=== PATIENT | male | born 1940 | race Hispanic/Latino ===

== ENCOUNTER 2019-10-18 12:43 | Emergency (ER) | payer MEDICARE ==
[2019-10-18 13:45] VITALS: BP 114/63
--- NOTE | 2019-10-18 14:56 | Emergency Department Report ---
ED General Adult HPI - General Chief complaint: Dental/Oral Stated complaint: VOMIT BLOOD Time Seen by Provider: 10/18/19 14:10 Source: patient Mode of arrival: Ambulatory Limitations: No Limitations - History of Present Illness Initial comments: She presents to the emergency department with a chief complaint of bleeding of his tongue. Patient takes no anticoagulants xarelto and states the bleeding started approximately 30 minutes after eating lunch. Patient is not sure if he scraped this time with a fork or not. Bleeding has subsided upon my examination and history. The patient has no other complaints -: Sudden Severity scale (0 -10): 0 Consistency: now resolved Improves with: none Worsens with: none Associated Symptoms: denies other symptoms Treatments Prior to Arrival: none - Related Data Allergies Allergy/AdvReac Type Severity Reaction Status Date / Time No Known Allergies Allergy Unverified 10/18/19 12:48 ED Review of Systems ROS: Stated complaint: VOMIT BLOOD Other details as noted in HPI Comment: All other systems reviewed and negative Constitutional: denies: chills, fever Eyes: denies: eye pain, eye discharge, vision change ENT: denies: ear pain, throat pain Respiratory: denies: cough, shortness of breath, wheezing Cardiovascular: denies: chest pain, palpitations Endocrine: no symptoms reported Gastrointestinal: denies: abdominal pain, nausea, diarrhea Genitourinary: denies: urgency, dysuria Musculoskeletal: denies: back pain, joint swelling, arthralgia Skin: denies: rash, lesions Neurological: denies: headache, weakness, paresthesias Psychiatric: denies: anxiety, depression Hematological/Lymphatic: denies: easy bleeding, easy bruising ED Past Medical Hx - Past Medical History Previous Medical History?: Yes Hx Diabetes: Yes - Surgical History Past Surgical History?: No - Social History Smoking Status: Never Smoker Substance Use Type: None ED Physical Exam - General Limitations: No Limitations General appearance: alert, in no apparent distress - Head Head exam: Present: atraumatic, normocephalic - Eye Eye exam: Present: normal appearance - ENT ENT exam: Present: mucous membranes moist, other (this coagulation of bleeding of the anterior aspect of the tongue.There appears to be an abrasion of the tongue along its anterior aspect at the site of the previous bleeding ) - Neck Neck exam: Present: normal inspection - Respiratory Respiratory exam: Present: normal lung sounds bilaterally. Absent: respiratory distress - Cardiovascular Cardiovascular Exam: Present: regular rate, normal rhythm. Absent: systolic murmur, diastolic murmur, rubs, gallop - Rectal Rectal exam: Present: deferred - Extremities Exam Extremities exam: Present: normal inspection - Back Exam Back exam: Present: normal inspection - Neurological Exam Neurological exam: Present: alert, oriented X3, CN II-XII intact. Absent: motor sensory deficit - Psychiatric Psychiatric exam: Present: normal affect, normal mood - Skin Skin exam: Present: warm, dry, intact, normal color. Absent: rash ED Course Vital Signs 10/18/19 13:43 Temperature 97.5 F L Pulse Rate 82 Respiratory 18 Rate Blood Pressure 114/63 O2 Sat by Pulse 100 Oximetry ED Medical Decision Making - Medical Decision Making Bleeding has subsided Discussed plan of care with patient and his Critical care attestation.: If time is entered above; I have spent that time in minutes in the direct care of this critically ill patient, excluding procedure time. ED Disposition Clinical Impression: Bleeding Disposition: DC-01 TO HOME OR SELFCARE Is pt being admited?: No Does the pt Need Aspirin: No Condition: Stable Additional Instructions: return if worse Referrals: SHANE STAPLETON MD [Staff Physician] - 3-5 Days Time of Disposition: 14:53
== END 2019-10-18 15:15 | disposition home or self-care (01) ==
LOC: ED 12:43
DX: K14.8 Other diseases of tongue (principal); E11.9 Type 2 diabetes mellitus without complications
CPT/HCPCS: 99282